=== PATIENT | female | born 1985 | race African-American/Black ===

== ENCOUNTER 2017-11-06 09:48 | Emergency (ER) | payer BC, OTHER ==
[2017-11-06 09:53] VITALS: BP 184/105; BMI 47.1
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
[2017-11-06] MEDS ORDERED: MOTRIN TAB 800 MG PO ONE ×2 (11:32→11:35)
== END 2017-11-06 11:45 | disposition home or self-care (01) ==
LOC: ER 09:57
PROC: 0WQ2XZZ Repair Face, External Approach (ICD-10-PCS; principal; 2017-11-06)
DX: S01.91XA Laceration without foreign body of unspecified part of head, initial encounter (principal); S60.022A Contusion of left index finger without damage to nail, initial encounter; Z04.71 Encounter for examination and observation following alleged adult physical abuse; W45.8XXA Other foreign body or object entering through skin, initial encounter; Y92.9 Unspecified place or not applicable; Y04.2XXA Assault by strike against or bumped into by another person, initial encounter
CPT/HCPCS: 99282